=== PATIENT | female | born 1935 | race Caucasian/White ===

== ENCOUNTER 2017-08-21 09:54 | Emergency (ER) | payer OTHER ==
[~2017-08-21] VITALS: Ht 157.5 cm; Wt 71.9 kg
[2017-08-21 10:05] VITALS: TEMP 36.8; Ht 157.5 cm; Wt 71.9 kg
[2017-08-21] MEDS ORDERED: ATOR-22 PO (10:20)
[2017-08-21] MEDS ORDERED: NIFE30TA83 PO (10:20)
[2017-08-21] MEDS ORDERED: ATEN-173 PO (10:20)
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
--- NOTE | 2017-08-21 11:01 | DIAGNOSTIC IMAGING REPORT ---
CHEST ONE VIEW PORTABLE CLINICAL HISTORY: 81 years-old Female presenting with CHEST PAIN, shakiness, vision problems, confusion. TECHNIQUE: Portable upright AP view of the chest was obtained. COMPARISON: None. FINDINGS: Atherosclerosis of aortic arch. Cardiac silhouette top normal in size. Lungs and pleural spaces clear. Degenerative changes of the acromioclavicular joints. Possible calcific tendinitis of the left shoulder. Degenerative changes of the spine. Upper abdomen normal. IMPRESSION: 1. No acute cardiopulmonary disease. Electronically signed by: Orville Villanueva M.D. 08/21/2017 10:59 AM Dictated Date/Time: 08/21/2017 10:58 AM
[2017-08-21 11:34] LABS: BASO % 0.3 %; BASO ABS # 0.02 K/uL (0-0.2); COMPLETE YES; EOS % 0.4 %; HEMATOCRIT 42.3 % (37-47); IG% 0.4 %; LYMPH ABS # 1.48 K/uL (1.2-3.4); MEAN CELL VOLUME 88.5 fL (80-100); MEAN PLATELET VOLUME 9.7 fL (7.4-10.4); MONO % 6.4 %; NEUT % 73.5 %; PLATELET COUNT 243 K/uL (130-400); RED BLOOD COUNT 4.78 M/uL (4.2-5.4); WHITE BLOOD COUNT 7.77 K/uL (4.8-10.8)
--- NOTE | 2017-08-21 11:43 | DIAGNOSTIC IMAGING REPORT ---
HEAD WITHOUT CONTRAST (CT) CLINICAL HISTORY: 81 years-old Female presenting with eval for rt visual change, confusion. TECHNIQUE: Multidetector CT imaging of the head was performed without the use of intravenous contrast. IV contrast: None. A dose lowering technique was used consistent with the principles of ALARA (as low as reasonably achievable). COMPARISON: None. CT DOSE (mGy.cm): The estimated cumulative dose is 537.48 mGy.cm. FINDINGS: Manager Of Financial topogram: Unremarkable. Proportional ventricular and sulcal prominence, likely age-related parenchymal volume loss. Brain parenchyma normal in appearance with preserved terrazas-white differentiation. No mass effect or midline shift. No hemorrhage or acute territorial infarct. No extra-axial fluid collection. Paranasal sinuses and mastoid air cells clear. Calvarium intact. [place] left lens is absent. IMPRESSION: 1. No acute intracranial abnormality. Electronically signed by: Orville Villanueva M.D. 08/21/2017 11:42 AM Dictated Date/Time: 08/21/2017 11:40 AM
[2017-08-21 11:48] LABS: URINE APPEARANCE CLEAR (CLEAR); URINE BILIRUBIN NEG (NEG); URINE COLOR YELLOW; URINE NITRITE NEG (NEG); URINE PH 7.5 (4.5-7.5); URINE SPECIFIC GRAVITY 1.015 (1.000-1.030); UROBILINOGEN NEG (NEG); ZZUR CULT IF INDIC CLEAN CATCH NO
[2017-08-21 11:54] LABS: BUN/CREATININE RATIO 14.2 (10-20); CALCIUM 9.1 mg/dl (8.5-10.1); CREATININE 1.09 mg/dl (0.60-1.20); POTASSIUM 4.1 mmol/L (3.5-5.1)
[2017-08-21 11:58] LABS: MANUAL MICROSCOPIC REQUIRED? NO; REVIEW REQ? NO
[2017-08-21 12:11] LABS: CKMB/CK RATIO 1.9 (0-3.0); THYROID STIMULATING HORMONE 0.173 uIu/ml (0.300-4.500)
[2017-08-21 13:17] VITALS: BP 192/78; PULSE 60; O2SAT 98
== END 2017-08-21 13:19 | disposition home or self-care (01) ==
LOC: C.EDB 09:56 → C.EDA 13:19
DX: R53.1 Weakness (principal); H53.8 Other visual disturbances; R00.1 Bradycardia, unspecified; I10 Essential (primary) hypertension; E78.5 Hyperlipidemia, unspecified; Z79.899 Other long term (current) drug therapy